=== PATIENT | female | born 1965 | race African-American/Black ===

== ENCOUNTER 2025-08-06 03:53 | Inpatient (IN) | payer SELFPAY ==
[2025-08-06] MEDS ORDERED: Dextrose 50% Abboject 50 ML SYRINGE ONE ×2 (04:39→06:17)
[2025-08-06] MEDS ORDERED: hydrALAZINE 20 MG/ML VIAL ONE (04:39)
[2025-08-06 04:41] LABS: #Basophils Less than 0.03 10x3/uL (0.0-0.2); #Eosinophils Less than 0.03 10x3/uL (0.0-0.5); #Monocytes 0.15 10x3/uL (0.0-1.1); #Neutrophils 8.97 10x3/uL (1.5-8.4); %Basophils 0.2 % (0.0-2.0); %Eosinophils 0.0 % (0.0-6.0); %Lymphocytes 10.4 % (18.0-47.0); %Monocytes 1.5 % (0.0-10.0); %Neutrophils 87.6 % (40.0-75.0); Hematocrit 41.8 % (34.9-44.5); Hemoglobin 13.5 g/dL (12.0-15.5); Mean Corpuscular Hemoglobin 26.6 pg (27.0-33.0); Mean Corpuscular Volume 82.4 fL (81.6-98.3); Platelet Count 301 10x3/uL (150-450); Red Blood Cell (RBC) Count 5.07 10x6/uL (3.90-5.03); White Blood Cell (WBC) Count 10.24 10x3/uL (3.5-10.5)
[2025-08-06 04:57] LABS: Acetaminophen Less than 10 mcg/mL (Less than 10); Lipase 40 U/L (8-78); Salicylate Less than 8.0 mg/dL (Less than 8.0)
[2025-08-06 04:58] LABS: Glucose, Urine (Dipstick) 250 mg/dL (Negative); Leukocyte Negative (Negative); Protein, Urine (Dipstick) 100 mg/dl (Neg-Trace); Specific Gravity, Urine 1.015 (1.005-1.030)
[2025-08-06 04:59] LABS: ALT (SGPT) 18 U/L (Less than 34); AST (SGOT) 29 U/L (11-34); Albumin 4.5 g/dL (3.1-4.5); Alkaline Phosphatase 113 U/L (40-110); Anion Gap 15 mmol/L (10-20); BUN (Urea Nitrogen) 9 mg/dL (9.8-20.1); Bilirubin, Total 0.3 mg/dL (0.3-1.2); CK (CPK) 131 U/L (29-168); Calc. Creatinine Clearance 0 mL/min (70-130); Calcium 10.0 mg/dL (7.8-10.44); Carbon Dioxide 28 mmol/L (22-29); Chloride 101 mmol/L (98-107); Globulin 4.1 g/dL (2.4-3.5); Potassium 2.9 mmol/L (3.5-5.1); Sodium 141 mmol/L (136-145)
[2025-08-06 05:04] LABS: Glucose 36 mg/dL (70-105); Troponin I 0.084 ng/mL (< 0.028)
[2025-08-06 05:08] LABS: Cocaine Metabolite Screen PRELIM POSITIVE (Negative); THC/Cannabinoid Screen Negative (Negative); Tricyclic Screen Negative (Negative)
[2025-08-06 05:14] LABS: Bacteria/HPF None Seen HPF (None Seen); CAUTI Indications for Culture Pelvic or flank pain; RBC/HPF None Seen HPF (0-3); WBC/HPF 0-3 HPF (0-3)
[2025-08-06 05:15] LABS: Urine Culture Reflex No No
[2025-08-06 07:02] LABS: Magnesium 1.7 mg/dL (1.6-2.6)
[2025-08-06] MEDS: WATER IV SCH (07:55)
[2025-08-06] MEDS: SODIUM CHLORIDE IV SCH (07:55)
[2025-08-06] MEDS: DEXTROSE 10% IV SCH (07:55)
[2025-08-06] MEDS: POTASSIUM CHLORIDE IV SCH (07:55)
[2025-08-06] MEDS ORDERED: Acetaminophen 325 MG TAB PO PRN (08:42)
[2025-08-06] MEDS: Famotidine 20 MG TAB PO SCH (09:00)
[2025-08-06] MEDS: Losartan 50 MG TAB PO SCH ×2 (09:00→12:59)
[2025-08-06 10:11] LABS: Troponin I 0.066 ng/mL (< 0.028)
[2025-08-06] MEDS: Potassium Chloride 20 MEQ in Premix 1 BAG IVPB SCH (10:53)
[2025-08-06] MEDS: Enoxaparin 40 MG (0.4 mL) SYRINGE SC SCH (10:54)
[2025-08-06 13:28] VITALS: BMI 20.9
[2025-08-06] MEDS: FLU (Fluarix Triv) 25-26 (6MOS UP)/PF 45 MCG/0.5 ML Syringe IM ONE (16:53)
[2025-08-06] MEDS: Mupirocin 1 GM TUBE NASAL DECOLONIZATION NASAL SCH (20:39)
[2025-08-07] MEDS ORDERED: Dextrose 50% Abboject 50 ML SYRINGE SLOW IVP PRN (00:19)
[2025-08-07] MEDS ORDERED: Glucagon 1 MG/ML KIT IM PRN (00:19)
[2025-08-07 03:43] LABS: #Basophils Less than 0.03 10x3/uL (0.0-0.2); #Eosinophils Less than 0.03 10x3/uL (0.0-0.5); #Monocytes 0.59 10x3/uL (0.0-1.1); #Neutrophils 5.91 10x3/uL (1.5-8.4); %Basophils 0.2 % (0.0-2.0); %Eosinophils 0.0 % (0.0-6.0); %Lymphocytes 32.8 % (18.0-47.0); %Monocytes 6.1 % (0.0-10.0); %Neutrophils 60.7 % (40.0-75.0); Hematocrit 36.1 % (34.9-44.5); Hemoglobin 11.7 g/dL (12.0-15.5); Mean Corpuscular Hemoglobin 26.4 pg (27.0-33.0); Mean Corpuscular Volume 81.5 fL (81.6-98.3); Platelet Count 311 10x3/uL (150-450); Red Blood Cell (RBC) Count 4.43 10x6/uL (3.90-5.03); White Blood Cell (WBC) Count 9.73 10x3/uL (3.5-10.5)
[2025-08-07 03:58] LABS: Anion Gap 11 mmol/L (10-20); BUN (Urea Nitrogen) 13 mg/dL (9.8-20.1); Calc. Creatinine Clearance 79 mL/min (70-130); Calcium 8.7 mg/dL (7.8-10.44); Carbon Dioxide 24 mmol/L (22-29); Chloride 109 mmol/L (98-107); Glucose 136 mg/dL (70-105); Potassium 4.0 mmol/L (3.5-5.1); Sodium 140 mmol/L (136-145)
[2025-08-07] MEDS: Losartan 50 MG TAB PO SCH (09:08)
[2025-08-07 10:23] VITALS: BP 171/72; TEMP 98.6
== END 2025-08-07 10:55 | disposition home or self-care (01) | DRG 917 ==
LOC: CSHERS 03:53 → CSHICU 07:02
PROVIDERS: ADMIT Internal Medicine; ATTEND Internal Medicine
DX: T40.5X1A Poisoning by cocaine, accidental (unintentional), initial encounter (principal); G92.9 Unspecified toxic encephalopathy; I5A Non-ischemic myocardial injury (non-traumatic); I16.0 Hypertensive urgency; R73.9 Hyperglycemia, unspecified; E16.2 Hypoglycemia, unspecified; E87.6 Hypokalemia
CPT/HCPCS: 36415; 36416; 70450; 71045; 80048; 80053; 80306; 80307; 81001; 82550; 83690; 83735; 84484; 85025; 87428; 93005; 96372; 96374; 96375; 96376; J0360; J1650; J1815; J2060; J2354; J3480; J7999